=== PATIENT | male | born 1950 | race Caucasian/White ===

== ENCOUNTER 2023-09-07 10:40 | Emergency (ER) | payer MEDICARE, SELFPAY ==
--- NOTE | ~2023-09-07 | US_ITS ---
EXAMINATION: US VENOUS WITH DOPPLER UPPER EXTREMITY, LEFT CLINICAL INFORMATION: Left upper extremity pain history of recent IV and clot. COMPARISON: None available. TECHNIQUE: Ultrasound of the upper extremity is performed using compression sonography and color and pulse Doppler flow with assessment of augmentation of flow. There is also imaging and Doppler assessment of the jugular and subclavian veins. Spectral analysis with color-flow imaging is performed. FINDINGS: Respiratory variation, normal compression, and augmented flow are noted throughout the upper extremity including the axillary, brachial, and radial and ulnar veins. There is normal flow in the internal jugular and subclavian veins. There is no visible deep thrombophlebitis. There is however echogenic thrombus seen within the left basilic vein throughout the upper arm with no significant flow on color Doppler. Left cephalic vein is not visualized. US/US venous duplex UE LT IMPRESSION: No DVT demonstrated in the left upper extremity. If there is echogenic thrombus seen in the basilic vein consistent with a superficial thrombophlebitis
[2023-09-07 10:48] VITALS: BP 120/85; PULSE 79; RESP 16; TEMP 36.4; O2SAT 97; BMI 28.1
[2023-09-07 11:06] LABS: MANUAL DIFF FLAG NO
[2023-09-07 11:12] LABS: Basophils Percent Auto 0.7 % (0-2); Eosinophils Absolute Auto 0.2 X10*3/uL (0.0-0.4); Eosinophils Percent Auto 3.6 % (0-4); Hematocrit 43.8 % (42.0-52.0); Hemoglobin 15.2 g/dl (14.0-18.0); Imm Gran Abs Auto 0.01 X10*3/uL (0.00-0.03); Imm Gran Pct Auto 0.2 % (0.0-0.4); Lymphocytes Absolute Auto 1.5 X10*3/uL (1.2-4.9); Lymphocytes Percent Auto 26.2 % (20-40); Mean Corpuscular HGB Conc 34.7 g/dl (31.0-36.0); Mean Corpuscular Hemoglobin 31.9 pg (27.0-33.0); Mean Corpuscular Volume 91.8 fL (80.0-98.0); Mean Platelet Volume 8.9 fL (9.4-12.4); Monocytes Absolute Auto 0.3 X10*3/uL (0.1-1.2); Monocytes Percent Auto 5.3 % (2-11); Neutrophils Absolute Auto 3.8 x10*3/uL (2.0-8.3); Platelet Count 149 X10*3/uL (160-400); Red Blood Count 4.77 X10*6/uL (4.60-5.80); Red Cell Distribution Width 12.4 % (11.0-16.0); White Blood Count 5.9 X10*3/uL (4.8-10.8)
[2023-09-07 11:23] LABS: Alanine Aminotransferase 29 U/L (0-40); Albumin Level 3.9 g/dL (3.5-5.0); Alkaline Phosphatase 47 U/L (39-117); Anion Gap 11 (12-20); Aspartate Amino Transferase 20 U/L (5-37); Bilirubin Total 0.4 mg/dL (0.0-1.0); Blood Urea Nitrogen 24 mg/dL (9-16); Calcium 9.2 mg/dL (8.4-10.2); Carbon Dioxide 26 mmol/L (22-29); Chloride 111 mmol/L (96-108); Creatinine Clr Calc Pharmacy 71.5; Estimated Glomerular Filt Rate > 60; Glucose Random 126 mg/dL (60-115); Potassium 3.9 mmol/L (3.3-5.1); Sodium 144 mmol/L (135-145); Total Protein 6.9 g/dL (6.5-8.0)
--- NOTE | 2023-09-07 11:35 | ED_ITS ---
HPI - Extremity Problem General Chief complaint: Extremity Injury, Upper Stated complaint: Blood clot (?) in arm Time Seen by Provider: 09/07/23 15:29 Source: patient Mode of arrival: ambulatory History of Present Illness ED Provider: Scott Stewart PA-C HPI Narrative: 72 yold male with pmh of DVT and kidney stones presents to the ED for left medial antecubital mass since having IV placement in arm last week. Patient states had IV placement for surgery last week. Patient denies any chest pain, shortness of breath, calf pain, pleurisy, fever, chills, left neck pain, referred chest pain, back pain, redness, numbness/tinling, hotness, or coldness. Patient not on any blood thinners. Related Data Previous Rx's ?Medication ?Instructions ?Recorded naproxen 500 mg tablet 500 mg PO BID PRN pain 7 days #14 09/07/23 tabs Allergies Allergy/AdvReac Type Severity Reaction Status Date / Time Sulfa (Sulfonamide Allergy Blister Verified 09/07/23 10:50 Antibiotics) Review of Systems 2 Review of Systems: left anticubital medial mass after IV placement. Yes all other systems are reviewed and are negative PMFSH Social History Social History Advance Directives: Yes Advance Directives Information Provided: Yes Advance Directives on File: No Do you have a plan to hurt others: No Plan Physical Exam 2 Vital Signs: Vital Signs: Last Vital Signs Temp 97.5 F 09/07/23 10:48 Pulse 79 09/07/23 10:48 Resp 16 09/07/23 10:48 BP 120/85 09/07/23 10:48 Pulse Ox 97 09/07/23 10:48 O2 Del Method Room Air 09/07/23 10:48 BMI result Body Mass Index 28.1 Const: General: cooperative, healthy appearing, comfortable, no acute distress, well developed, alert, awake and Physically active O rientation/consciousness: oriented to person, oriented to place, oriented to time and patient oriented x3 HEENT: Head: Yes normal to inspection, Yes No palpable skull fracture present, Yes normocephalic and Yes atraumatic Eyes: General: appearance normal, both eyes and all related structures Neck: Neck: Yes normal visual inspection, Yes full ROM, Yes no lymphadenopathy, Yes no meningeal signs, Yes trachea midline, Yes supple, No anterior neck swelling and No tender Chest: Chest palpation & inspection: normal inspection of the chest and normal palpation of entire chest wall Resp: Effort & Inspection: normal respiratory effort and able to speak in complete sentences Auscultation: clear to auscultation bilaterally Cardio: Jugular venous distension: no JVD Heart sounds: S1 normal heart sound present and S2 normal heart sound present GI: Inspection: Yes normal to inspection Palpation (GI): Soft to palpation, not firm, nontender, no guarding and not rigid : General: No CVA tenderness and Yes no CVA tenderness Back/Spine/Pelvis: Back: no CVA tenderness, No CVA tenderness and No back tenderness Skin: General skin exam: no rashes or lesions noted, elasticity normal and turgor normal Neuro: General: oriented to person, oriented to place, oriented to time, patient oriented x3, gait normal, moves all extremities, Normal light touch and pain sensation, no meningeal signs, no focal motor deficits and CN's II-XI intact bilaterally Extrem: Other: Bilateral lower extremities negative for swelling, pitting edema, calf tendneress or ecchymosis. motor, neuro, and vascular exam is intact. General: Yes normal to inspection, Yes full ROM and Yes capillary refill normal Elbow/forearm/wrist images: 1. palpable mass. slight tenderness. negative for warmth, pus discharge, foul odor, drainage, hotness, ecchymosis, coldness, or hotness. rest of extremity is normal. Motor, neuro, and vascular exam is intact. Psych: Appearance: grossly normal, well kempt and not disheveled Course Course Course Narrative: RME: Done ALEA Stewart. 72 yold male presents to the ED left medial antecubital MASS. Patient states recently had surgery and had IV placed in the arm. Patient states surgery was last week and also recently travel from [place]. Patient states history of venous blood clot in left arm. Patient states no chest pain or shortness of breath. Patient denies any lower extremity swelling or calf pain. Physical exam positive for medial left antecubital tenderness on palpation. Negative for obvious swelling, erythema, or mass. Motor/neuro/vascular exam left upper extremity intact. Bilateral lower extremities normal. Negative for calf tenderness or swelling. Negative for pitting edema. Labs ultrasound ordered. Patient denies any chest pain or shortness of breath Medical Decision Making Medical Decision Making MDM Narrative: 72 yold male presents to the ED for left medial arm MASS after IV placment. PaTENT HAS LUMP IN LEFT MEDIAL ASEPCT OF ANTICUBITAL Labs normal. Ultrasound left upper extremity positive for possible superficial phlebitis but negative for DVT. Presently not suspecting pulmonary embolus or DVT of bilateral lower extremities. Patient denies any chest pain, shortness of breath, leg swelling, calf pain, or pleurisy. Patient educated explained worrisome signs and inforemd to return to the ED if he has them. not suspecting myocardial infarction, CHF, PE, DVt of lower extremities, stroke, pneumonia, arterial occlusion, or compartment syndrome. patient educated on NSAIDS and warm compression. Differential Diagnosis Differential Diagnoses: The differential diagnosis associated with the presentation includes (superficial thrombophlebitis, DVT, cellulitis, ) Admission/Observation Consideration of admission/observation: Escalation of care including admission/observation considered Lab Data [facility] Lab Attestation statement: I reviewed the patient's lab results. 09/07/23 11:03 09/07/23 11:03 Labs: Lab Results 09/07/23 Range/Units 11:03 WBC 5.9 (4.8-10.8) X10*3/uL RBC 4.77 (4.60-5.80) X10*6/uL Hgb 15.2 (14.0-18.0) g/dl Hct 43.8 (42.0-52.0) % MCV 91.8 (80.0-98.0) fL MCH 31.9 (27.0-33.0) pg MCHC 34.7 (31.0-36.0) g/dl RDW 12.4 (11.0-16.0) % Plt Count 149 L (160-400) X10*3/uL MPV 8.9 L (9.4-12.4) fL Immature Gran % (Auto) 0.2 (0.0-0.4) % Neut % (Auto) 64.0 (45-73) % Lymph % (Auto) 26.2 (20-40) % Taliaferro % (Auto) 5.3 (2-11) % Eos % (Auto) 3.6 (0-4) % Baso % (Auto) 0.7 (0-2) % Lymph # (Auto) 1.5 (1.2-4.9) X10*3/uL Taliaferro # (Auto) 0.3 (0.1-1.2) X10*3/uL Eos # (Auto) 0.2 (0.0-0.4) X10*3/uL Baso # (Auto) 0.0 (0.0-0.2) X10*3/uL Abs Immat Gran (auto) 0.01 (0.00-0.03) X10*3/uL Absolute Neuts (auto) 3.8 (2.0-8.3) x10*3/uL Absolute Nucleated RBC 0.000 (0.0-0.012) X10*3/uL Nucleated RBC % (auto) 0.0 (0.0-0.2) /100WBC PT 12.2 (11.1-13.3) SEC INR 1.0 (0.9-1.1) APTT 29.0 (26.0-36.8) SEC Hold Blue Top SEE NOTE Sodium 144 (135-145) mmol/L Potassium 3.9 (3.3-5.1) mmol/L Chloride 111 H (96-108) mmol/L Carbon Dioxide 26 (22-29) mmol/L Anion Gap 11 L (12-20) BUN 24 H (9-16) mg/dL Creatinine 0.95 (0.5-1.4) mg/dL Estim Creat Clear Calc 71.5 Estimated GFR > 60 Random Glucose 126 H (60-115) mg/dL Calcium 9.2 (8.4-10.2) mg/dL Total Bilirubin 0.4 (0.0-1.0) mg/dL AST 20 (5-37) U/L ALT 29 (0-40) U/L Alkaline Phosphatase 47 (39-117) U/L Total Protein 6.9 (6.5-8.0) g/dL Albumin 3.9 (3.5-5.0) g/dL Independent Interpretation I performed an independent interpretation of an: Ultrasound Radiology Impression Discussion of test interpretation with radiology: I have reviewed the radiologist's reading. Independent Historian Clinical information obtained from an independent historian. History obtained from or confirmed by: Other (patient) External Record Review External record reviewed: Other (Prior visits) Prescription Management I considered prescription management with: Pain Medication Discharge Plan Discharge Clinical Impression: Superficial thrombophlebitis of arm Patient Disposition: Home, Self-Care Instructions: Superficial Thrombophlebitis (ED) Additional Instructions: RECOMMEND WARM COMPRESS ON AREA 4 TIMES A DAY FOR 15 MINUTES. RECOMMEND FOLLOW- UP WITH THE PRIMARY CARE PROVIDER. RETURN TO THE ED IMMEDIATELY FOR ANY INCREASED SWELLING OF THE UPPER EXTREMITY, WORSENING PAIN, CHEST PAIN, SHORTNESS OF BREATH, LEG SWELLING, CALF PAIN, COUGHING UP BLOOD, FEVER, CHILLS, CHEST PAIN INSPIRATION, OR ANY OTHER CONCERNING SYMPTOMS. US VENOUS WITH DOPPLER UPPER EXTREMITY, LEFT CLINICAL INFORMATION: Left upper extremity pain history of recent IV and clot. COMPARISON: None available. TECHNIQUE: Ultrasound of the upper extremity is performed using compression sonography and color and pulse Doppler flow with assessment of augmentation of flow. There is also imaging and Doppler assessment of the jugular and subclavian veins. Spectral analysis with color-flow imaging is performed. FINDINGS: Respiratory variation, normal compression, and augmented flow are noted throughout the upper extremity including the axillary, brachial, and radial and ulnar veins. There is normal flow in the internal jugular and subclavian veins. There is no visible deep thrombophlebitis. There is however echogenic thrombus seen within the left basilic vein throughout the upper arm with no significant flow on color Doppler. Left cephalic vein is not visualized. US/US venous duplex UE LT IMPRESSION: No DVT demonstrated in the left upper extremity. If there is echogenic thrombus seen in the basilic vein consistent with a superficial thrombophlebitis Dictated By: Drake Patel MD Signed By: <Electronically signed by Drake Patel MD in OV> 09/07/23 1500 Prescriptions: New naproxen 500 mg tablet 500 mg PO BID PRN (Reason: pain) 7 Days Qty: 14 0RF Discharge Date/Time: 09/07/23 15:42 Print Language: Sinhala
[2023-09-07 13:07] LABS: Prothrombin Time 12.2 SEC (11.1-13.3)
== END 2023-09-07 15:42 | disposition home or self-care (01) ==
PROVIDERS: Physician Assistant; Emergency Provider Emergency Medicine
DX: I80.8 Phlebitis and thrombophlebitis of other sites (principal)
CPT/HCPCS: 36415; 80053; 85025; 85610; 85730; 93971; 99281; 99284